=== PATIENT | female | born 1990 | race Hispanic/Latino ===

== ENCOUNTER 2024-05-14 10:20 | Outpatient (CLI) | payer OTHER | END 2024-05-14 10:21 | disposition home or self-care (01) | LOC: CSHULT 10:20 | PROVIDERS: ATTEND Advanced Practice Midwife | DX: Z34.82 Encounter for supervision of other normal pregnancy, second trimester (principal); Z3A.17 17 weeks gestation of pregnancy | CPT/HCPCS: 76805 ==

== ENCOUNTER 2024-10-08 12:02 | Day surgery (SDC) | payer OTHER ==
[2024-10-08] MEDS ORDERED: hydrALAZINE 20 MG/ML VIAL SLOW IVP PRN (13:21)
== END 2024-10-08 14:23 | disposition home or self-care (01) ==
LOC: CSHLD/OP 12:02
PROVIDERS: ATTEND Family Medicine
DX: O47.1 False labor at or after 37 completed weeks of gestation (principal); Z79.899 Other long term (current) drug therapy; Z3A.37 37 weeks gestation of pregnancy
CPT/HCPCS: 99283

== ENCOUNTER 2024-10-11 22:50 | Inpatient (IN) | payer MEDICAID, OTHER, SELFPAY ==
[~2024-10-11 22:50] MED LIST: Bupivacaine/Epinephrine 0.25% 30 ML VIAL ONE
[2024-10-11 23:06] VITALS: BMI 28.9
[2024-10-12] MEDS ORDERED: Promethazine HCl 25 MG/ML VIAL IM PRN ×3 (00:06→05:55)
[2024-10-12] MEDS ORDERED: Methylergonovine 0.2 MG/ML VIAL IM PRN (00:06)
[2024-10-12] MEDS ORDERED: Carboprost 250 MCG/ML AMP IM PRN (00:06)
[2024-10-12] MEDS ORDERED: Diphenoxylate HCl/Atropine Tablet PO PRN ×2 (00:06)
[2024-10-12] MEDS ORDERED: Ondansetron PF 4 MG/2 ML Vial IVP PRN ×3 (00:06→05:55)
[2024-10-12] MEDS ORDERED: Lidocaine 1% (PF) 30 ML VIAL SC PRN (00:06)
[2024-10-12] MEDS ORDERED: Misoprostol 200 MCG TAB PR PRN (00:06)
[2024-10-12] MEDS ORDERED: Tranexamic Acid 1,000 MG/10 ML VIAL IVP PRN (00:06)
[2024-10-12] MEDS ORDERED: hydrALAZINE 20 MG/ML VIAL SLOW IVP PRN ×2 (00:06→05:55)
[2024-10-12] MEDS ORDERED: Oxytocin 30 units/NS 500 ML 500 ML IV SCH (00:15)
[2024-10-12 00:29] LABS: Hematocrit 39.8 % (34.9-44.5); Hemoglobin 14.1 g/dL (12.0-15.5); Mean Corpuscular HGB CONC 35.4 g/dL (32.0-36.0); Mean Corpuscular Hemoglobin 30.4 pg (27.0-33.0); Mean Corpuscular Volume 85.8 fL (81.6-98.3); Mean Platelet Volume 10.8 fL (7.4-10.4); Platelet Count 241 10x3/uL (150-450); RBC Distribution Width 12.4 % (11.5-14.5); Red Blood Cell (RBC) Count 4.64 10x6/uL (3.90-5.03); White Blood Cell (WBC) Count 9.8 10x3/uL (3.5-10.5)
[2024-10-12 00:50] LABS: HBsAg Index 0.18 S/CO (0-0.99); Hep B Surf Ag - L&D Non-Reactive S/CO (NonReactive)
[2024-10-12 00:51] LABS: Syphilis Antibody Nonreactive (Nonreactive); Syphilis Antibody Index 0.04 S/CO (<1.00 Non-Reactive)
[2024-10-12] MEDS: fentaNYL/Ropivacaine Epidural 100 ML ONE (01:01)
[2024-10-12] MEDS ORDERED: diphenhydrAMINE 50 MG/ML VIAL IVP PRN (01:12)
[2024-10-12] MEDS ORDERED: ePHEDrine Sulfate 50 MG/10 ML VIAL SLOW IVP PRN (01:12)
[2024-10-12] MEDS ORDERED: Moisturizing Cream (Eucerin) 113 GM JAR TOP PRN (01:12)
[2024-10-12] MEDS ORDERED: Lactated Ringer's 500 ML IV PRN (01:12)
[2024-10-12] MEDS ORDERED: Naloxone HCl 0.4 mg/ml Vial IVP PRN ×2 (01:12)
[2024-10-12] MEDS ORDERED: fentaNYL 2 mcg/Ropivacaine 0.2% Epidural 100 ML CADD EPIDURAL SCH (01:15)
[2024-10-12] MEDS: Oxytocin 30 units/NS 500 ML 500 ML IV SCH (03:34)
[2024-10-12] MEDS: Acetaminophen 325 MG TAB PO PRN (03:43)
[2024-10-12] MEDS: Ibuprofen 800 MG TAB PO PRN (03:43)
[2024-10-12] MEDS ORDERED: diphenhydrAMINE 25 MG CAP PO PRN (05:55)
[2024-10-12] MEDS ORDERED: HYDROcodone/Acetaminophen 5/325 mg Tablet PO PRN (05:55)
[2024-10-12] MEDS ORDERED: Bisacodyl 10 MG SUPP PR PRN (05:55)
[2024-10-12] MEDS ORDERED: Lanolin Ointment 7 GM TUBE TOP PRN (05:55)
[2024-10-12] MEDS ORDERED: Milk Of Magnesia 30 ML UDCUP PO PRN (05:55)
[2024-10-12] MEDS: Ferrous Sulfate 325 MG TAB PO SCH (07:54)
[2024-10-12] MEDS: Docusate 100 MG CAP PO SCH (07:55)
[2024-10-12] MEDS: Prenatal Vitamin 1 TAB PO SCH (07:55)
[2024-10-12] MEDS ORDERED: Boostrix 0.5 ML (Tdap) VIAL (>/=7 yrs of age) IM ONE (08:00)
[2024-10-12] MEDS: Ibuprofen 800 MG TAB PO SCH ×2 (13:35→21:17)
[2024-10-13] MEDS: Oxytocin 30 units/NS 500 ML 500 ML ONE (19:18)
[2024-10-14 07:24] VITALS: BP 96/58; TEMP 97.8
== END 2024-10-14 17:50 | disposition home or self-care (01) | DRG 807 ==
LOC: CSHLD/OP 22:50 → CSHLD 23:18 → CSHPP 10-12 05:43
PROVIDERS: ADMIT Family Medicine; ATTEND Family Medicine
PROC: 10E0XZZ Delivery of Products of Conception, External Approach (ICD-10-PCS; principal; 2024-10-12)
PROC: 3E0S3BZ Introduction of Anesthetic Agent into Epidural Space, Percutaneous Approach (ICD-10-PCS; 2024-10-12)
DX: O80 Encounter for full-term uncomplicated delivery (principal); Z37.0 Single live birth; Z3A.38 38 weeks gestation of pregnancy
CPT/HCPCS: 51702; 85027; 86780; 86850; 86900; 86901; 87340; 99285; J2590